=== PATIENT | female | born 2000 ===

== ENCOUNTER 2022-11-20 16:38 | Inpatient (IN) | payer OTHER ==
[2022-11-20] MEDS ORDERED: Phenylephrine 1% 10 MG/ML SDV ONE (17:36)
[2022-11-20] MEDS ORDERED: Oxytocin 10 Units/1 ML SDV ONE ×3 (17:36)
[2022-11-20] MEDS ORDERED: Morphine PF 10 MG/10 ML SDV ONE (17:36)
[2022-11-20] MEDS ORDERED: fentaNYL 100 MCG/2 ML SDV IVPUSH PRN (17:37)
[2022-11-20] MEDS ORDERED: HYDROmorphone 1 MG/ML Syringe IVPUSH PRN (17:37)
[2022-11-20] MEDS ORDERED: ePHEDrine 50 MG/ML SDV IVPUSH PRN (17:37)
[2022-11-20] MEDS ORDERED: Ondansetron 4 MG/2 ML SDV IVPUSH PRN ×3 (17:37→19:46)
[2022-11-20] MEDS ORDERED: fentaNYL 50 MCG/ML SDV IVPUSH PRN (17:37)
[2022-11-20] MEDS ORDERED: Naloxone 0.4 MG/ML SDV IVPUSH PRN (17:37)
[2022-11-20] MEDS ORDERED: droPERidol 5 MG/2 ML SDV IVPUSH PRN (17:37)
[2022-11-20] MEDS ORDERED: Morphine 2 MG/ML SYRINGE IVPUSH PRN (17:37)
[2022-11-20] MEDS ORDERED: Acetaminophen/oxyCODONE 325-5 MG Tab PO PRN ×2 (17:37→19:46)
[2022-11-20] MEDS ORDERED: diphenhydrAMINE 50 MG/ML SDV IVPUSH PRN ×2 (17:37→19:46)
[2022-11-20] MEDS ORDERED: Albuterol 0.083% 2.5 MG/3 ML Neb Soln NEB PRN (17:37)
[2022-11-20] MEDS ORDERED: Metoclopramide 10 MG/2 ML SDV IVPUSH PRN (17:37)
[2022-11-20] MEDS ORDERED: Dexmedetomidine 200 MCG/2 ML SDV ONE (17:48)
[2022-11-20] MEDS ORDERED: Ropivacaine 0.5% 5 MG/ML 30 ML SDV ONE (17:48)
[2022-11-20] MEDS ORDERED: Water For Injection, Sterile 20 ML ONE (17:49)
[2022-11-20] MEDS ORDERED: Citric Acid/Sodium Citrate Solution 30 ML Cup PO ONE (18:11)
[2022-11-20] MEDS ORDERED: Sodium Chloride 0.9% 2.5 ML Syringe FLUSH PRN (18:11)
[2022-11-20] MEDS ORDERED: Sodium Chloride 0.9% 10 ML Syringe FLUSH PRN (18:11)
[2022-11-20] MEDS ORDERED: Sodium Chloride 0.9% 20 ML SDV IV PRN (18:11)
[2022-11-20] MEDS ORDERED: Oxytocin/0.9 % Sodium Chloride 30 UNIT/500 ML BAG IV SCH ×2 (18:15→20:00)
[2022-11-20] MEDS ORDERED: Lactated Ringers 1,000 ML IV SCH ×2 (18:15→20:00)
[2022-11-20 18:36] LABS: HEMATOCRIT 39.4 % (36.0-46.0); HEMOGLOBIN 12.3 g/dL (12.0-16.0); MEAN CORPUSCULAR HEMOGLOBIN 24.5 pg (27.0-32.0); MEAN CORPUSCULAR HGB CONC 31.2 g/dL (31.0-37.0); MEAN CORPUSCULAR VOLUME 78.3 fL (80.0-98.0); MEAN PLATELET VOLUME 11.1 fL (7.40-12.00); RED BLOOD CELL COUNT 5.03 M/uL (4.30-5.90); WHITE BLOOD CELL COUNT,WBC 11.33 K/uL (4.0-11.0)
[2022-11-20] MEDS ORDERED: ceFAZolin 1 GM Vial ONE ×2 (18:46)
[2022-11-20] MEDS ORDERED: Tranexamic Acid 1,000 MG/10 ML Vial ONE (19:08)
[2022-11-20] MEDS ORDERED: Bisacodyl 10 MG Supp RECTAL PRN (19:46)
[2022-11-20] MEDS ORDERED: Misoprostol 200 MCG Tab RECTAL PRN (19:46)
[2022-11-20] MEDS ORDERED: Lanolin 100% Cream 7 GM Tube TOP PRN (19:46)
[2022-11-20] MEDS ORDERED: Oxytocin 10 Units/1 ML SDV IM PRN (19:46)
[2022-11-20] MEDS ORDERED: Methylergonovine 0.2 MG/1 ML Amp IM PRN (19:46)
[2022-11-20] MEDS ORDERED: Ketorolac 30 MG/ML SDV IVPUSH SCH (20:00)
[2022-11-20] MEDS: Docusate Sodium 100 MG Cap PO SCH (21:08)
[2022-11-21] MEDS: Acetaminophen 1,000 MG in Premix Bag 1 BAG IV SCH ×3 (01:41→14:20)
[2022-11-21] MEDS: Ketorolac 30 MG/ML SDV IVPUSH SCH ×4 (03:09→21:01)
[2022-11-21 06:10] LABS: HEMATOCRIT 30.8 % (36.0-46.0); HEMOGLOBIN 9.5 g/dL (12.0-16.0)
[2022-11-21] MEDS: Docusate Sodium 100 MG Cap PO SCH ×2 (09:26→21:02)
[2022-11-22] MEDS ORDERED: Ibuprofen 800 MG Tab PO PRN (02:00)
[2022-11-22] MEDS: Acetaminophen/oxyCODONE 325-5 MG Tab PO PRN ×2 (05:45→17:12)
[2022-11-22] MEDS: Docusate Sodium 100 MG Cap PO SCH (09:12)
== END 2022-11-22 18:35 | disposition home or self-care (01) | DRG 788 ==
LOC: MW.OBCHECK 16:38 → MW.OB 16:43 → MW.OBCHECK 18:10 → MW.OB 18:11 → OBSVTOIN 18:54 → MW.OB 22:38
PROVIDERS: ADMIT Obstetrics & Gynecology Obstetrics; ATTEND Obstetrics & Gynecology Obstetrics
PROC: 10D00Z1 Extraction of Products of Conception, Low, Open Approach (ICD-10-PCS; principal; 2022-11-20)
DX: O32.1XX0 Maternal care for breech presentation, not applicable or unspecified (principal); O42.02 Full-term premature rupture of membranes, onset of labor within 24 hours of rupture; Z3A.38 38 weeks gestation of pregnancy; Z37.0 Single live birth
CPT/HCPCS: 01961; 36415; 59025; 64488; 76805; 76805-26; 84112; 85014; 85018; 85027; 86592; 86850; 86900; 86901; A9270-GY; J0131; J0690; J1885; J2274; J2371; J2590; J2795; J3490; J7120